=== PATIENT | female | born 1985 | race Asian ===

== ENCOUNTER 2018-02-22 13:03 | Emergency (ER) | payer OTHER ==
[~2018-02-22] VITALS: Ht 157.5 cm; Wt 62.6 kg
[2018-02-22 13:41] VITALS: Ht 157.5 cm; Wt 62.6 kg
[2018-02-22 15:26] VITALS: BP 142/78
== END 2018-02-22 15:26 | disposition home or self-care (01) ==
LOC: ED 13:03
DX: T22.211A Burn of second degree of right forearm, initial encounter (principal); T31.0 Burns involving less than 10% of body surface; T79.9XXA Unspecified early complication of trauma, initial encounter
CPT/HCPCS: 90715